=== PATIENT | female | born 1985 | race African-American/Black ===

== ENCOUNTER 2023-07-01 22:24 | Emergency (ER) | payer OTHER ==
[2023-07-01 22:31] VITALS: BP 137/90; PULSE 83; RESP 18; TEMP 98; BMI 24.2
[2023-07-02] MEDS ORDERED: IBUPROFEN 600 MG TABLET (FP) PO ONE (00:11)
[2023-07-02] MEDS: IBUPROFEN 600 MG TABLET (FP) PO ONE (00:13)
== END 2023-07-02 01:26 | disposition home or self-care (01) ==
LOC: JER 22:24 → JERFT 22:24
DX: S46.911A Strain of unspecified muscle, fascia and tendon at shoulder and upper arm level, right arm, initial encounter (principal); S16.1XXA Strain of muscle, fascia and tendon at neck level, initial encounter; M54.6 Pain in thoracic spine; X50.9XXA Other and unspecified overexertion or strenuous movements or postures, initial encounter
CPT/HCPCS: 72050-TC-FY; 72070-TC-FY; 73030-TC-RT-FY; 99284-25